=== PATIENT | male | born 1960 | race Caucasian/White ===

== ENCOUNTER → 2019-03-11 | Outpatient (CLI) | payer BC ==
[~2019-03-11] MED LIST: CYCL10; HYDACE5 PO; IBUP800; IBUP800 PO; PENVK500 PO
== END ==
LOC: LAB SHORT 12:21 → PLD 12:21
DX: D48.5 Neoplasm of uncertain behavior of skin (principal)
CPT/HCPCS: 87070; 87077; 87147; 87186; 87205

== ENCOUNTER 2023-02-06 09:37 | Day surgery (SDC) | payer BC, OTHER ==
[~2023-02-06] VITALS: Ht 177.8 cm; Wt 83.9 kg
[2023-02-06] VITALS (15 sets, daily range): BP systolic 97–140; BP diastolic 63–89
[~2023-02-06 09:37] MED LIST changes: +CELE100 PO; +CYCL10 PO; +HYDR1TAB94 PO; +TRAM50 PO; +ZYRTEC10 M2 PO
--- NOTE | 2023-02-06 10:46 | NUR ---
Ambulatory in Day Surgery. History, Chart, Medications and Allergies reviewed before start of procedure. Lungs clear T/O to Auscultation. Patient confirms NPO status and agrees with scheduled surgery. Pre-Op teaching done. Pt verbalizes understanding. Patient States Post-Procedure ride home has been arranged.
--- NOTE | 2023-02-06 11:52 | NUR ---
02/06/23 Sue Bello HISTORY, CHART, MEDICATIONS AND ALLERGIES REVIEWED BEFORE START OF PROCEDURE. PATIENT CONFIRMS NPO STATUS AND AGREES WITH SCHEDULED PROCEDURE. 3-LEAD EKG REVIEWED WITH PHYSICIAN PRIOR TO START OF PROCEDURE. MONITOR INTACT WITH CONTINUOUS PULSE OXIMETRY,CAPNOGRAPHY, 3-LEAD EKG, INTERMITTENT BP. SUPPLEMENTAL O2 TO BE TITRATED THROUGHOUT PROCEDURE TO MAINTAIN O2 SATURATION ABOVE 90%. PATIENT DETERMINED TO BE ASA APPROPRIATE FOR PROPOFOL SEDATION PRIOR TO START OF PROCEDURE BY .
--- NOTE | 2023-02-06 12:08 | NUR ---
REPORT RECIEVED. PT SITTING UP IN BED TOLERING PO FLUDIS. DR CARNEY AT BEDSIDE. VSS ON ROOM AIR
--- NOTE | 2023-02-06 12:35 | NUR ---
Patient up to Ambulate independently. Gait steady. Discharge instructions reviewed with patient. Patient verbalizes understanding. Copy given to patient to take home. Discharged via wheelchair to private car for ride home.
== END 2023-02-06 12:36 | disposition home or self-care (01) ==
LOC: ORSCMMR 09:37 → ORD 10:30 → ORSCMMR 10:30
PROVIDERS: Internal Medicine Gastroenterology
PROC: 0DB98ZX Excision of Duodenum, Via Natural or Artificial Opening Endoscopic, Diagnostic (ICD-10-PCS; principal; 2023-02-06 10:30)
PROC: 0DB58ZX Excision of Esophagus, Via Natural or Artificial Opening Endoscopic, Diagnostic (ICD-10-PCS; principal; 2023-02-06 10:30)
PROC: 0DB48ZX Excision of Esophagogastric Junction, Via Natural or Artificial Opening Endoscopic, Diagnostic (ICD-10-PCS; principal; 2023-02-06 10:30)
PROC: 0D758ZZ Dilation of Esophagus, Via Natural or Artificial Opening Endoscopic (ICD-10-PCS; principal; 2023-02-06 10:30)
DX: R13.14 Dysphagia, pharyngoesophageal phase (principal); M35.3 Polymyalgia rheumatica; F17.210 Nicotine dependence, cigarettes, uncomplicated; Z79.899 Other long term (current) drug therapy
CPT/HCPCS: 88305; A9270; C1726; J2704; J7120

== ENCOUNTER → 2023-07-02 | Outpatient (CLI) | payer BC, OTHER | END | disposition home or self-care (01) | LOC: LAB 12:16 → LAB SHORT 12:16 | DX: N41.0 Acute prostatitis (principal) | CPT/HCPCS: 87086 ==

== ENCOUNTER 2023-07-19 12:04 | Day surgery (SDC) | payer BC, OTHER ==
[~2023-07-19] VITALS: Ht 175.3 cm; Wt 85.3 kg
[2023-07-19] VITALS (19 sets, daily range): BP systolic 98–150; BP diastolic 55–88
[~2023-07-19 12:04] MED LIST changes: +ALBU90OI INH; +Acetaminophen325 M1 PO; +BUDESONIDE-FO10.2 G2 INH; +KETO15TC TOP; +LIDO5TO TOP; +MONT10T PO; +MUPIROCIN111 TP; +TAMS.4ER PO
--- NOTE | 2023-07-19 12:45 | NUR ---
Ambulatory in Day Surgery History, Chart, Medications and Allergies reviewed before start of procedure. Pre-Op teaching done. Pt verbalizes understanding. Patient States Post-Procedure ride home has been arranged.
--- NOTE | 2023-07-19 14:27 | NUR ---
07/19/23 1427 Griffin Callaway PT TO ENDO ROOM 2 FOR PROCEDURE VIA GURN. HISTORY REVIEWED PRIOR TO PROCEDURE. PT PLACED ON BP, O2, EKG AND HR MONITORS. OXYGEN PLACED VIA POM MASK. BITE BLOCK PLACED.
--- NOTE | 2023-07-19 15:37 | NUR ---
DISCHARGE INSTRUCTIONS GONE OVER WITH PT. PT EXPRESSES UNDERSTANDING. PT TOLERATING WATER WELL. TAKEN TO RIDE HOME VIA [facility].C.
== END 2023-07-19 15:38 | disposition home or self-care (01) ==
LOC: ORSCMMR 12:04 → ORD 13:00 → ORSCMMR 13:00
PROVIDERS: Student in an Organized Health Care Education/Training Program
PROC: 0B9M7ZX Drainage of Bilateral Lungs, Via Natural or Artificial Opening, Diagnostic (ICD-10-PCS; principal; 2023-07-19 13:00)
DX: R91.8 Other nonspecific abnormal finding of lung field (principal); J41.1 Mucopurulent chronic bronchitis; F17.210 Nicotine dependence, cigarettes, uncomplicated; Z79.899 Other long term (current) drug therapy
CPT/HCPCS: 87070; 87205; 88104; 88312; A9270; J0171; J2001; J2250; J2704; J3010; J7120

== ENCOUNTER → 2023-12-13 | Outpatient (CLI) | payer OTHER ==
[2023-12-13 14:03] LABS: Source, Urine Clean Catch
[2023-12-13 15:08] LABS: Appearance, Urine Clear (Clear); Bilirubin, Urine Neg (Neg); Blood, Urine Neg (Neg); Color, Urine Yellow (P-Yellow); Glucose Qualitative, Urine Neg (Neg); Ketones, Urine Neg (Neg); Leukocyte Esterase, Urine Neg (Neg); Nitrite, Urine Neg (Neg); Protein, Urine Neg (Neg); Specific Gravity, Urine 1.025 (1.003-1.022); Urobilinogen, Urine 1+ (Normal)
== END ==
LOC: LAB SHORT 14:02 → LAB 14:02
PROVIDERS: Family Medicine
DX: N40.1 Benign prostatic hyperplasia with lower urinary tract symptoms (principal)
CPT/HCPCS: 81003

== ENCOUNTER → 2024-08-28 | Outpatient (CLI) | payer OTHER | LOC: LAB SHORT 18:24 → LAB 18:24 | DX: R10.30 Lower abdominal pain, unspecified (principal) | CPT/HCPCS: 87077; 87086; 87186 ==

== ENCOUNTER 2024-11-05 21:22 | Emergency (ER) | payer OTHER ==
[~2024-11-05] VITALS: Ht 175.3 cm; Wt 84.8 kg
[2024-11-05 22:10] VITALS: BP 119/62
== END 2024-11-06 02:20 | disposition left against medical advice (07) ==
LOC: ER 21:22
DX: M54.50 Low back pain, unspecified (principal); Z53.21 Procedure and treatment not carried out due to patient leaving prior to being seen by health care provider